=== PATIENT | female | born 1970 | race Hispanic/Latino ===

== ENCOUNTER 2017-07-12 00:46 | Emergency (ER) | payer SELFPAY ==
[2017-07-12 00:53] VITALS: BP 130/84; PULSE 81; RESP 18; TEMP 97.4; O2SAT 98
--- NOTE | 2017-07-12 01:26 | ED PDOC ---
HPI: Psych/Substance Abuse Time Seen by Provider: 07/12/17 00:54 Chief Complaint (Nursing): Alcohol Ingestion History Per: Patient History/Exam Limitations: no limitations Onset/Duration Of Symptoms: Other (x today) Current Symptoms Are (Timing): Still Present Additional History Per: EMS Additional Complaint(s): 46-year-old female brought in by EMS for public alcohol intoxication. Patient reports drinking large amount of liquor tonight. No complaints of pain, nausea or vomiting. PMD: No Provider Past Medical History Reviewed: Historical Data, Nursing Documentation, Vital Signs Vital Signs: Last Vital Signs Temp 97.4 F L 07/12/17 00:50 Pulse 81 07/12/17 00:50 Resp 18 07/12/17 00:50 BP 130/84 07/12/17 00:50 Pulse Ox 98 07/12/17 00:50 - Medical History PMH: No Chronic Diseases - Surgical History Surgical History: No Surg Hx - Family History Family History: States: Unknown Family Hx - Allergies Allergies/Adverse Reactions: Allergies Allergy/AdvReac Type Severity Reaction Status Date / Time No Known Allergies Allergy Verified 07/12/17 00:50 Review of Systems ROS Statement: Except As Marked, All Systems Reviewed And Found Negative Gastrointestinal: Negative for: Nausea, Vomiting Physical Exam - Reviewed Nursing Documentation Reviewed: Yes Vital Signs Reviewed: Yes - Physical Exam Appears: Positive for: No Acute Distress. Negative for: Non-toxic Head Exam: Positive for: ATRAUMATIC, NORMAL INSPECTION, NORMOCEPHALIC Skin: Positive for: Normal Color, Warm, Dry Eye Exam: Positive for: Normal appearance, EOMI Cardiovascular/Chest: Positive for: Regular Rate, Rhythm Respiratory: Negative for: Respiratory Distress Extremity: Positive for: Normal ROM. Negative for: Deformity Neurologic/Psych: Positive for: Alert, Oriented, Gait (Steady) - ECG O2 Sat by Pulse Oximetry: 98 (RA) Pulse Ox Interpretation: Normal Medical Decision Making Medical Decision Making: Impression(s): Alcohol Intoxication Patient appears alert and oriented. Ambulates with steady gait. Upon provider evaluation patient is medically stable, and requires no further treatment in the ED at this time. Patient will be discharged. Counseling was provided and all questions were answered regarding diagnosis. There is agreement to discharge plan. Return if symptoms persist or worsen. Scribe Attestation: Documented by Josesito Funes, acting as a scribe for Arti Stahl MD. Provider Scribe Attestation: All medical record entries made by the Scribe were at my direction and personally dictated by me. I have reviewed the chart and agree that the record accurately reflects my personal performance of the history, physical exam, medical decision making, and the department course for this patient. I have also personally directed, reviewed, and agree with the discharge instructions and disposition. Disposition - Clinical Impression Clinical Impression: Alcohol abuse with intoxication - Patient ED Disposition Is Patient to be Admitted: No - Disposition Referrals: [facility] [Outside] Disposition: Routine/Home Disposition Time: 01:35 Condition: GOOD Additional Instructions: Follow up with your PCP in 2-3 days. Instructions: Alcohol Abuse and Alcoholism (DC)
== END 2017-07-12 01:45 | disposition home or self-care (01) ==
LOC: H.ER 00:46
DX: F10.129 Alcohol abuse with intoxication, unspecified (principal)